=== PATIENT | male | born 1995 | race Caucasian/White ===

== ENCOUNTER 2020-10-17 10:44 | Outpatient (REF) | payer OTHER, SELFPAY | END 2020-10-17 10:45 | disposition home or self-care (01) | LOC: HO.BBR 10:44 | PROVIDERS: Visit Provider Internal Medicine | DX: Z13.89 Encounter for screening for other disorder (principal) ==

== ENCOUNTER 2023-11-04 10:48 | Outpatient (REF) | payer OTHER, SELFPAY | END 2023-11-04 10:49 | disposition home or self-care (01) | LOC: HO.BBR 10:48 | PROVIDERS: Visit Provider Internal Medicine | DX: Z13.89 Encounter for screening for other disorder (principal) ==